=== PATIENT | female | born 1990 | race African-American/Black ===

== ENCOUNTER 2020-12-13 18:29 | Emergency (ER) | payer OTHER ==
[2020-12-13] MEDS ORDERED: Acetaminophen 500 MG TAB ONE (20:21)
== END 2020-12-13 20:28 | disposition home or self-care (01) ==
LOC: CSHERS 18:29
DX: H66.92 Otitis media, unspecified, left ear (principal); H60.502 Unspecified acute noninfective otitis externa, left ear; I10 Essential (primary) hypertension; E11.9 Type 2 diabetes mellitus without complications
CPT/HCPCS: 99283